=== PATIENT | male | born 1955 | race Caucasian/White ===

== ENCOUNTER 2023-08-31 21:54 | Emergency (ER) | payer OTHER, SELFPAY ==
--- NOTE | ~2023-08-31 | XR_ITS ---
XR chest 2V Ordering provider: Ezequiel Osborne DO History: 68 years Male with . SOB COUGH . Comparison: None. FINDINGS: MEDIASTINUM: The cardiac silhouette is not enlarged. Postoperative changes in the sternum. Stent in the right coronary artery. LUNGS: No infiltrates, effusions or pneumothorax. Emphysematous changes. OTHER: No free air under the diaphragm. Degenerative spine. IMPRESSION: No acute cardiopulmonary pathology. Reviewed, dictated and finalized at location A.
--- NOTE | ~2023-08-31 | CT_ITS ---
EXAMINATION: CTA chest PE protocol DATE: 09/01/2023 01:26 INDICATION: Shortness of breath. Productive cough. TECHNIQUE: Computed tomography angiography (CTA) of the chest was performed with 100 mL Omnipaque-350 intravenous contrast timed to evaluate the pulmonary arteries. Coronal maximum intensity projection 3D-reconstructions were created by the technologist. Automated exposure control and iterative reconst ruction technique were employed. The dose-length product was 245.69 mGy-cm. COMPARISON: Chest 2 views 08/31/2023 FINDINGS: There is moderate emphysema. There is mild dependent atelectasis bilaterally. There is no p leural effusion. The heart size is normal. There are coronary artery calcifications. There are change s of coronary artery bypass grafting. No pericardial effusion. There are cysts in the kidneys measuri ng up to 3.3 cm on the right. There is no pulmonary embolus. There is mild bilateral hilar lymphadeno paramjit, likely reactive. There is moderate thoracic spondylosis. There is mild chronic anterior wedgin g of multiple vertebral bodies. IMPRESSION: 1. No pulmonary embolus. 2. Moderate emphysema. 3. Mild bilateral hilar lymphadenopathy, likely reactive. Reviewed, dictated and finalized at location E.
--- NOTE | 2023-08-31 21:58 | ECG_ITS ---
Test Date: 2023-08-31 22:02:29 Measurements Intervals [place] Rate: 67 P: 71 [place]: 133 QRS: 2 QRSD: 105 T: -5 QT: 391 QTc: 414 Interpretive Statements SINUS RHYTHM WITH FREQUENT SUPRAVENTRICULAR PREMATURE COMPLEXES POSSIBLE LEFT ATRIAL ENLARGEMENT CANNOT R/O SEPTAL INFARCT, AGE INDETERMINATE CONSIDER INFERIOR INFARCT, AGE INDETERMINATE BORDERLINE ST ABNORMALITY- LATERAL LEADS BASELINE ARTIFACT- I, II, AVR ABNORMAL ECG No previous ECG available for comparison Electronically Signed On 09-01-2023 07:48:44 CDT by Silvino Marie D.O.
[2023-08-31 22:03] VITALS: BP 126/59; PULSE 65; RESP 17; TEMP 36.6; O2SAT 97
[2023-08-31 22:21] LABS: Basophils Percent Auto 0.5 % (0.2-1.2); Eosinophils Absolute Auto 0.3 K/mm3 (0-0.3); Eosinophils Percent Auto 3.8 % (0-4.4); Hematocrit 38.4 % (42.0-52.0); Hemoglobin 13.2 g/dL (14.0-18.0); Immature Granulocyte Absolute 0.02 K/mm3 (0.00-0.031); Immature Granulocyte Percent A 0.2 % (0-0.5); Lymphocytes Absolute Auto 1.85 K/mm3 (0.9-3.2); Lymphocytes Percent Auto 21.1 % (18.3-44.2); Mean Corpuscular HGB Conc 34.4 g/dl (32-36); Mean Corpuscular Hemoglobin 29.9 pg (26-34); Mean Corpuscular Volume 87.1 fl (80-100); Mean Platelet Volume 10.4 fl (7.4-10.4); Monocytes Absolute Auto 0.8 K/mm3 (0.1-0.6); Monocytes Percent Auto 9.1 % (2.6-8.5); Neutrophils Absolute Auto 5.7 K/mm3 (1.3-6.7); Neutrophils Percent Auto 65.3 % (45.5-73.1); Platelet Count Result 209 k/mm3 (150-375); Red Blood Count 4.41 M/mm3 (4.6-6.20); Red Cell Distribution Width 13.1 % (11.5-14.5); White Blood Count 8.8 K/mm3 (4.5-10.0)
[2023-08-31 22:32] LABS: Alanine Aminotransferase 40 U/L (6-50); Albumin Level 4.3 g/dL (3.5-5.1); Alkaline Phosphatase 91 U/L (38-126); Anion Gap 5 mmol/L (4-12); Aspartate Amino Transferase 33 U/L (17-59); Bilirubin,Total 0.6 mg/dL (0.2-1.3); Blood Urea Nitrogen 21 mg/dL (9-20); Calcium 9.3 mg/dL (8.4-10.2); Carbon Dioxide 27 mmol/L (22-30); Chloride 106 mmol/L (98-107); Estimated CRCL calculation 67 ml/min; Estimated Glomerular Filt Rate > 60; Glucose 100 mg/dL (65-110); Potassium 4.1 mmol/L (3.4-5.0); Sodium 138 mmol/L (137-145)
[2023-08-31 22:58] LABS: Influenza A QL RT-PCR Negative (Negative); Influenza B QL RT-PCR Negative (Negative); RSV RNA, RT-PCR Negative (Negative); SARS-CoV-2 RNA PCR Negative (Negative)
[2023-09-01] MEDS: IPRATROPIUM 0.5 MG/ALBUTEROL SULFATE 2.5 MG AMPUL.NEB 3 ML INHALATION (00:29)
[2023-09-01 00:31] VITALS: PULSE 68; RESP 19
--- NOTE | 2023-09-01 00:38 | ED.SOB ---
HPI - SOB/Dyspnea General Chief Complaint: Shortness of Breath/Dyspnea Stated Complaint: cough, hard time catching breath Time Seen by Provider: 08/31/23 23:22 Source: patient Mode of arrival: ambulatory Limitations: no limitations History of Present Illness HPI Narrative: Patient is a 68-year-old male, with PMH of CAD s/p CABG last year, who presents the ED with report of cough. Patient reports over the last few days, he has had a persistent raspy intermittently productive cough. Reports bringing up a lot of mucus, cough worse with laying flat. He reports having some difficulty breathing with exertion and persistent coughing episodes. He has history of COPD, but does not currently take anything for this. Former smoker. Denies chest pain, fevers, abdominal pain, nausea, vomiting, lower extremity pain or swelling. Has been taking Mucinex at home. Review of Systems Review of Systems: CONSTITUTIONAL: Denies fever, chills, or sweats. CARDIOVASCULAR: Denies chest pain, palpitations, or edema. RESPIRATORY: See HPI. GASTROINTESTINAL: Denies abdominal pain, nausea, vomiting, or diarrhea. All systems reviewed & are unremarkable except as noted in HPI and below Exam Narrative: GENERAL: Well appearing, thin, non-toxic, in no acute distress. HEAD: Normocephalic, atraumatic. RESPIRATORY: Airway patent, respirations nonlabored. Clear to auscultation bilaterally, no rales, rhonchi, wheezing. Frequent coughing on exam. No significant focal lung sounds. CARDIOVASCULAR: Regular rate and rhythm without murmurs, rubs, or gallops. ABDOMINAL: Soft, nontender, nondistended. Normoactive BS. MUSCULOSKELETAL: Moves all extremities. No gross deformities. No calf tenderness. No lower extremity edema. SKIN: Warm, dry, normal color. NEURO: A&O X3. Speech clear. Cranial nerves II-XII grossly intact. Steady gait. No ataxic movements. PSYCHIATRIC: Appropriate mood and affect. Normal interaction. Course Vital Signs Vital signs: Vital Signs Temperature 97.9 F 08/31/23 22:03 Pulse Rate 65 08/31/23 22:03 Respiratory Rate 17 08/31/23 22:03 Blood Pressure 126/59 L 08/31/23 22:03 Pulse Oximetry 97 08/31/23 22:03 Oxygen Delivery Room Air 08/31/23 22:03 Temperature 97.9 F 08/31/23 22:03 Pulse Rate 80 09/01/23 02:38 Respiratory Rate 15 09/01/23 02:38 Blood Pressure 128/68 09/01/23 02:38 Pulse Oximetry 99 09/01/23 02:38 Oxygen Delivery Room Air 08/31/23 22:03 MDM - SOB/Dyspnea MDM Narrative Medical decision making narrative: Patient presented to ED with persistent cough over the last few days, intermittent shortness of breath. Hx of CAD/COPD, recent cabg. No known sick contacts. Vital signs are stable upon arrival. Patient in no acute distress. Frequent coughing on exam. Basic laboratory studies are fairly unremarkable. No leukocytosis. CMP unremarkable. Viral swabs were negative. EKG without concerning ischemic changes. Baseline troponin negative. BNP within normal limits per age. Chest x-ray is clear. CTA PE study obtained to further evaluate. CTA unremarkable, no PE, no evidence of PNA. shows emphysematous changes. Patient updated on lab and imaging findings. Feel he is safe for discharge home at this time. Advised to continue [id number] therapies. Discussed likelihood of viral URI, management of such. Will send in prescription for albuterol inhaler and Tessalon Perles for further symptom management. Given strict return precautions. He agrees w/ plan. D/C in stable condition. Medical Records Attestation: I reviewed the patient's medical records. Lab Data Attestation: I reviewed the patient's lab results. 08/31/23 22:16 08/31/23 22:16 Labs: Lab Results 08/31/23 09/01/23 Range/Units 22:16 00:26 WBC 8.8 (4.5-10.0) K/mm3 RBC 4.41 L (4.6-6.20) M/mm3 Hgb 13.2 L (14.0-18.0) g/dL Hct 38.4 L (42.0-52.0) % MCV 87.1 (80-100)
[2023-09-01 00:41] VITALS: PULSE 65; RESP 14
[2023-09-01 00:55] LABS: NT Pro B Type Natriuretic Pept 449 pg/mL (19.9-100); Troponin I < 0.012 ng/mL (0.000-0.034)
[2023-09-01 02:38] VITALS: BP 128/68; PULSE 80; RESP 15; O2SAT 99
[2023-09-01 03:52] VITALS: BP 124/86; PULSE 89; RESP 16; O2SAT 100
== END 2023-09-01 03:53 | disposition home or self-care (01) ==
PROVIDERS: Student in an Organized Health Care Education/Training Program; Emergency Provider Physician Assistant
DX: J06.9 Acute upper respiratory infection, unspecified (principal); I25.10 Atherosclerotic heart disease of native coronary artery without angina pectoris; Z95.1 Presence of aortocoronary bypass graft; Z87.891 Personal history of nicotine dependence; Z20.822 Contact with and (suspected) exposure to COVID-19
CPT/HCPCS: 36415; 71046; 71275; 80053; 83880; 84484; 85025; 87637; 93005; 94640; 99284; Q9967